=== PATIENT | female | born 1955 ===

== ENCOUNTER 2018-09-13 05:43 | Inpatient (IN) | payer OTHER ==
[~2018-09-13] VITALS: Ht 170.2 cm; Wt 62.4 kg
[2018-09-13] MEDS ORDERED: HYDROmorphONE 1 MG/ML SYG IV STA (06:06)
[2018-09-13] MEDS ORDERED: ONDANSETRON 4 MG INJ IV STA (06:06)
--- NOTE | 2018-09-13 06:26 | ERD ---
ER Documentation Chief Complaint Chief Complaint [facility] HPI This is a 63-year-old female who presents for evaluation of right upper quadrant abdominal pain. She denies fever, she was seen at [facility] today and was diagnosed with possible acute choledocholithiaisis. She denies fever, denies urinary symptoms, symptoms are sharp and intermittent, there are no alleviating or aggravating factors. She endorses nausea, denies chest pain. ROS All systems reviewed and are negative except as per history of present illness. Allergies Allergies: Coded Allergies: No Known Allergy (Unverified , 09/13/18) Physical Exam Vitals Vital Signs Date Temp Pulse Resp B/P (MAP) Pulse Ox O2 O2 Flow FiO2 Time Delivery Rate 09/13/18 98.5 79 20 141/82 98 05:53 (101) Physical Exam Const: No acute distress Head: Atraumatic Eyes: Normal Conjunctiva ENT: Normal External Ears, Nose and Mouth. Neck: Full range of motion. No meningismus. Resp: Clear to auscultation bilaterally Cardio: Regular rate and rhythm, no murmurs Abd: Soft, tenderness in the right upper quadrant, non distended. Normal bowel sounds Skin: No petechiae or rashes Back: No midline or flank tenderness Ext: No cyanosis, or edema Neur: Awake and alert Psych: Normal Mood and Affect Result Diagram: 09/13/18 0618 Results 24 hrs Laboratory Tests Test 09/13/18 06:18 White Blood Count 6.2 10^3/ul Red Blood Count 4.17 10^6/ul Hemoglobin 12.7 g/dl Hematocrit 37.0 % Mean Corpuscular Volume 88.7 fl Mean Corpuscular Hemoglobin 30.5 pg Mean Corpuscular Hemoglobin Concent 34.3 g/dl Red Cell Distribution Width 11.9 % Platelet Count 288 10^3/UL Mean Platelet Volume 9.7 fl Immature Granulocytes % 0.300 % Neutrophils % 58.4 % Lymphocytes % 26.5 % Monocytes % 10.6 % Eosinophils % 3.1 % Basophils % 1.1 % Nucleated Red Blood Cells % 0.0 /100WBC Immature Granulocytes # 0.020 10^3/ul Neutrophils # 3.6 10^3/ul Lymphocytes # 1.6 10^3/ul Monocytes # 0.7 10^3/ul Eosinophils # 0.2 10^3/ul Basophils # 0.1 10^3/ul Nucleated Red Blood Cells # 0.0 10^3/ul Urine Color YELLOW Urine Clarity CLEAR Urine pH 6.0 Urine Specific [place] 1.010 Urine Ketones 1+ mg/dL Urine Nitrite NEGATIVE mg/dL Urine Bilirubin NEGATIVE mg/dL Urine Urobilinogen NEGATIVE mg/dL Urine Leukocyte Esterase NEGATIVE Alejandro/ul Urine Microscopic RBC 2 /HPF Urine Microscopic WBC 1 /HPF Urine Mucus FEW /HPF Urine Hemoglobin 1+ mg/dL Urine Glucose NEGATIVE mg/dL Urine Total Protein NEGATIVE mg/dl Current Medications Medications Dose Sig/Cherelle Start Time Status Last (Trade) Ordered Route PRN Stop Time Admin Dose Reason Admin 1 mg ONCE STAT 09/13/18 DC 09/13/18 Hydromorphone IV 06:06 06:19 HCl 09/13/18 06:16 (Dilaudid) Ondansetron 4 mg ONCE STAT 09/13/18 DC 09/13/18 HCl (Zofran IV 06:06 06:19 Inj) 09/13/18 06:16 Procedures/MDM This 63-year-old female presents for evaluation of abdominal pain, seen at [facility] earlier today, presents today with persistent pain. It appears that she has failed outpatient management, of her cholelithiasis, and now there are signs concerning for acute choledocholithiasis. Her LFTs at the outside hospital were elevated with an AST of 290, and ALT of 212, and alk phos of 304, labs were otherwise unremarkable. Her ultrasound showed an 8 mm gallstone in the gallbladder neck, as well as common bile duct measured at 6 mm, findings which can concerning for acute choledocholithiasis. Patient was given analgesia in the ER, and will plan for admission. EKG: Rate/Rhythm: Normal Sinus Rhythm QRS, ST, T-waves: No changes consistent w/ acute ischemia Impression: No evidence of ischemia or arrhythmia Departure Diagnosis: Primary Impression: Abdominal pain Abdominal location: generalized Qualified Codes: R10.84 - Generalized abd ominal pain Additional Impressions: Cholelithiasis Cholelithiasis location: other site Biliary obstruction: without biliary obstruction Qualified Codes: K80.80 - Other cholelithiasis without obstruction Choledocholithiasis Condition: Stable KHARI GARCIA MD Sep 13, 2018 06:26
[2018-09-13] MEDS: PANTOPRAZOLE (EC) 40 MG TAB PO SCH (10:00)
[2018-09-13] MEDS ORDERED: HYDROCODONE/APAP (5/325) TAB PO PRN (10:00)
[2018-09-13] MEDS ORDERED: ACETAMINOPHEN 325 MG TAB PO PRN (10:00)
[2018-09-13] MEDS ORDERED: NACL 0.9% 3 ML SYG IV SCH (10:00)
[2018-09-13] MEDS ORDERED: morphine 2 MG INJ IV PRN (10:00)
[2018-09-13] MEDS ORDERED: ONDANSETRON 4 MG INJ IV PRN (10:00)
--- NOTE | 2018-09-13 10:07 | CONS ---
Assessment/Plan Assessment/Plan Hospital Course (Demo Recall) Assessment: Right upper quadrant abdominal pain/abnormal liver function test. Rule out acute cholecystitis Rule out choledocholithiasis Rule out peptic ulcer disease Rule out underlying liver disease Cholelithiasis Fibromyalgia TMJ Migraine headaches Plan: HIDA scan, MRCP, pending results consider ERCP if MRCP suspicious are confirmatory of choledocholithiasis. Surgical consult pending. Hepatocellular disease workup i.e. hepatitis viral and otherwise requested Consider EGD if biliary workup is negative We will follow with you Consultation Date/Type/Reason Admit Date/Time Sep 13, 2018 at 07:49 Date of Consultation: Sep 13, 2018 Type of Consult Gastroenterology Reason for Consultation Abdominal pain/abnormal liver function tests/cholelithiasis Date/Time of Note DATE: 09/13/18 TIME: 09:58 Hx of Present Illness 63-year-old female who is a poor historian she tends to get distracted and deviate from topic frequently. She also has according to her research and is very knowledgeable regarding medical issues. The patient was referred to the emergency room from [facility] where she had presented yesterday with abdominal pain, she apparently was found to have cholelithiasis on ultrasonography and also by CAT scan and apparently there was suggestion of a stone in the bile ducts. Unfortunately we have not been able to obtain the reports from [facility]. Patient has abnormality of liver function tests with hyperbilirubinemia which is indirect. The patient states that her pain has been recurrent for the last several months. She had been diagnosed cholelithiasis several months prior but she has been researching options to dissolve stones. At the present time the patient is pain-free as she received opiate pain management. She denies fever, nausea, vomiting. Of significance patient has been diagnosed fibromyalgia but is taking no medication for this purpose. She denies previous surgery. She denies smoking, alcohol or drug use. She admits to taking large quantities of Excedrin and other nonsteroidal inflammatory agents and is concerned about the possibility of peptic ulcer disease. There has been no overt gastrointestinal bleeding. At this point the patient will be evaluated with HIDA scan and MRCP as well as hepatocellular liver workup to rule out hepatitis viral and otherwise. Pending results of MRCP and HIDA scan and surgical evaluation the patient may benefit from ERCP if MRCP is consistent or suspicious for choledocholithiasis. She may also be considered for endoscopic examination given her history of nonsteroidal inflammatory agent use. Review of Systems: [A 12 system, review was conducted and is negative except as noted in the HPI or here.] Gastrointestinal and liver: [As noted in HPI] Past Medical History Cholelithiasis Fibromyalgia TMJ Migraine headaches Medications Current Medications Dextrose/Sodium Chloride 1,000 ml @ 100 mls/hr Q10H IV ; Start 09/13/18 at 09:45 IV Flush (NS 3 ml) 3 ml PER PROTOCOL IV ; Start 09/13/18 at 10:00 Ondansetron HCl (Zofran Inj) 4 mg Q6H PRN IV NAUSEA/VOMITING; Start 09/13/18 at 10:00 Acetaminophen (Tylenol Tab) 650 mg Q6H PRN PO .PAIN 1-3 OR TEMP; Start 09/13/18 at 10:00 Acetaminophen/ Hydrocodone Bitart ([place] (5/325)) 1 tab Q6H PRN PO .PAIN 4-6; Start 09/13/18 at 10:00 Morphine Sulfate (morphine) 2 mg Q4H PRN IV .PAIN 7-10; Start 09/13/18 at 10:00 Pantoprazole (Protonix Tab) 40 mg DAILY@06 PO ; Start 09/13/18 at 10:00 Allergies: Coded Allergies: No Known Allergy (Unverified , 09/13/18) Past Surgical History Inguinal hernia repaired Bunionectomy. Family History Significant Family History: no pertinent family hx Social History Alcohol Use: none Smoking Status: Never smoker Drug Use: none Exam/Review of Systems Exam Vitals Vital Signs Date Temp Pulse Resp B/P (MAP) Pulse Ox O2 O2 Flow FiO2 Time Delivery Rate 09/13/18 58 16 131/70 99 Room Air 08:19 (90) 09/13/18 98.5 05:53 Exam PHYSICAL EXAMINATION: GENERAL: Well developed, well nourished, alert & oriented x 3, in no acute distress SKIN: No lesions, no stigmata chronic liver disease, no evidence of bleeding diathesis LYMPHATIC: No palpable lymphadenopathy. HEAD: Normocephalic, atraumatic, no tenderness. EYES: Pupils equal reactive to light and accommodation, full extraocular movements, sclera clear, non-icteric, no discharge. EARS/NOSE AND THROAT: Ears normal, nose normal, oropharynx normal, oral membranes well hydrated without lesions. NECK: Supple, no masses, thyroid normal, JVP within normal limits, carotids normal without bruits. CHEST: Inspection within normal limits. CARDIOVASCULAR: Heart: Regular rate and rhythm, no murmurs, gallops or rubs. Peripheral pulses present within normal limits, no cyanosis, clubbing or edemas. No pulsatile abdominal mass RESPIRATORY: Lungs clear to auscultation and percussion, no wheezing, no rubs GASTROINTESTINAL AND LIVER: Abdomen: Soft, mild right upper quadrant tenderness, no Corrigan sign, non-distended, no hernias, no masses, no organomegaly, no ascites, no guarding, no rebound tenderness, normoactive bowel sounds. Rectal: Deferred. GENITOURINARY: [Female genitalia within normal limits.] EXTREMITIES: No cyanosis, clubbing or edema. [MUSCULO-SKELETAL: Gait and station within normal limits, range of motion adequate.] [NEUROLOGIC: Cranial nerves II-XII intact, Motor within normal limits, Sensory within normal limits. Reflexes within normal limits. PSYCHIATRIC: Alert & oriented x 3, mood/affect/judgement adequate] Results Result Diagram: 09/13/18 0618 09/13/18 0618 Results 24hrs Laboratory Tests Test 09/13/18 06:18 White Blood Count 6.2 Red Blood Count 4.17 L Hemoglobin 12.7 Hematocrit 37.0 Mean Corpuscular Volume 88.7 Mean Corpuscular Hemoglobin 30.5 Mean Corpuscular Hemoglobin Concent 34.3 Red Cell Distribution Width 11.9 Platelet Count 288 Mean Platelet Volume 9.7 Immature Granulocytes % 0.300 Neutrophils % 58.4 Lymphocytes % 26.5 Monocytes % 10.6 Eosinophils % 3.1 Basophils % 1.1 Nucleated Red Blood Cells % 0.0 Immature Granulocytes # 0.020 Neutrophils # 3.6 Lymphocytes # 1.6 Monocytes # 0.7 Eosinophils # 0.2 Basophils # 0.1 Nucleated Red Blood Cells # 0.0 Prothrombin Time 13.1 Prothrombin Time Ratio 1.0 INR International Normalized Ratio 0.98 Urine Color YELLOW Urine Clarity CLEAR Urine pH 6.0 Urine Specific [place] 1.010 Urine Ketones 1+ H Urine Nitrite NEGATIVE Urine Bilirubin NEGATIVE Urine Urobilinogen NEGATIVE Urine Leukocyte Esterase NEGATIVE Urine Microscopic RBC 2 Urine Microscopic WBC 1 Urine Mucus FEW A Urine Hemoglobin 1+ H Urine Glucose NEGATIVE Urine Total Protein NEGATIVE Sodium Level 142 Potassium Level 3.7 Chloride Level 103 Carbon Dioxide Level 28 Anion Gap 11 Blood Urea Nitrogen 12 Creatinine 0.87 Est Glomerular Filtrat Rate mL/min > 60 Glucose Level 123 Calcium Level 9.9 Total Bilirubin 1.2 Direct Bilirubin 0.00 Indirect Bilirubin 1.2 H Aspartate Amino Transf (AST/SGOT) 175 H Alanine Aminotransferase (ALT/SGPT) 186 H Alkaline Phosphatase 277 H Troponin I < 0.012 Total Protein 8.4 H Albumin 4.7 Globulin 3.70 H Albumin/Globulin Ratio 1.27 Lipase 84 Medications Medication Current Medications Dextrose/Sodium Chloride 1,000 ml @ 100 mls/hr Q10H IV ; Start 09/13/18 at 09:45 IV Flush (NS 3 ml) 3 ml PER PROTOCOL IV ; Start 09/13/18 at 10:00 Ondansetron HCl (Zofran Inj) 4 mg Q6H PRN IV NAUSEA/VOMITING; Start 09/13/18 at 10:00 Acetaminophen (Tylenol Tab) 650 mg Q6H PRN PO .PAIN 1-3 OR TEMP; Start 09/13/18 at 10:00 Acetaminophen/ Hydrocodone Bitart ([place] (5/325)) 1 tab Q6H PRN PO .PAIN 4-6; Start 09/13/18 at 10:00 Morphine Sulfate (morphine) 2 mg Q4H PRN IV .PAIN 7-10; Start 09/13/18 at 10:00 Pantoprazole (Protonix Tab) 40 mg DAILY@06 PO ; Start 09/13/18 at 10:00 VICKY MONTALVO MD Sep 13, 2018 10:07
[2018-09-13 10:15] VITALS: BP 149/65; PULSE 68; RESP 18
[2018-09-13] MEDS: DEXTROSE 5%-0.45% NACL 1,000 ML IV SCH ×2 (10:28→19:45)
[2018-09-13 11:00] VITALS: Ht 170.2 cm; Wt 62.4 kg
[2018-09-13] MEDS ORDERED: PIPER-TAZO 3.375 GM IV (PMX) 100 ML IVPB SCH (12:30)
--- NOTE | 2018-09-13 14:32 | HP ---
Date/Time of Note Date/Time of Note DATE: 09/13/18 TIME: 14:31 Assessment/Plan VTE Prophylaxis SCD contraindicated: other Pharmacological prophylaxis: other Lines/Catheters IV Catheter Type (from [facility]): Peripheral IV Assessment/Plan Hospital Course Patient is a female with a past medical history significant for fibromyalgia and intermittent abdominal pain who was told from her clinic to urgently come to the emergency room. Patient had been complaining of intermittent right upper quadrant and abdominal pain usually when she eats for the past couple of weeks or months. Currently patient has no abdominal pain but there has been abnormal liver function tests found on outpatient lab work. Patient denies chest pain, shortness of breath, leg pain, abdominal pain for now. Objective Physical exam Assessment and plan Intermittent right upper quadrant and abdominal pain -Elevated liver function test -Ultrasound showing gallbladder wall thickening -HIDA and MRCP ordered per GI -GI consulted -General surgery consulted, Dr. Dinero Fibromyalgia -Chronic, monitor History of TMJ Chronic monitor Disposition -Monitor, GI and general surgery recommendations, pending HIDA and MRCP results. Result Diagram: 09/13/18 0618 09/13/18 0618 Results 24hrs Laboratory Tests Test 09/13/18 06:18 09/13/18 10:18 09/13/18 10:19 White Blood Count 6.2 Red Blood Count 4.17 L Hemoglobin 12.7 Hematocrit 37.0 Mean Corpuscular Volume 88.7 Mean Corpuscular Hemoglobin 30.5 Mean Corpuscular Hemoglobin Concent 34.3 Red Cell Distribution Width 11.9 Platelet Count 288 Mean Platelet Volume 9.7 Immature Granulocytes % 0.300 Neutrophils % 58.4 Lymphocytes % 26.5 Monocytes % 10.6 Eosinophils % 3.1 Basophils % 1.1 Nucleated Red Blood Cells % 0.0 Immature Granulocytes # 0.020 Neutrophils # 3.6 Lymphocytes # 1.6 Monocytes # 0.7 Eosinophils # 0.2 Basophils # 0.1 Nucleated Red Blood Cells # 0.0 Prothrombin Time 13.1 Prothrombin Time Ratio 1.0 INR International Normalized Ratio 0.98 Urine Color YELLOW Urine Clarity CLEAR Urine pH 6.0 Urine Specific [place] 1.010 Urine Ketones 1+ H Urine Nitrite NEGATIVE Urine Bilirubin NEGATIVE Urine Urobilinogen NEGATIVE Urine Leukocyte Esterase NEGATIVE Urine Microscopic RBC 2 Urine Microscopic WBC 1 Urine Mucus FEW A Urine Hemoglobin 1+ H Urine Glucose NEGATIVE Urine Total Protein NEGATIVE Sodium Level 142 Potassium Level 3.7 Chloride Level 103 Carbon Dioxide Level 28 Anion Gap 11 Blood Urea Nitrogen 12 Creatinine 0.87 Est Glomerular Filtrat Rate mL/min > 60 Glucose Level 123 Calcium Level 9.9 Total Bilirubin 1.2 Direct Bilirubin 0.00 Indirect Bilirubin 1.2 H Aspartate Amino Transf (AST/SGOT) 175 H Alanine Aminotransferase (ALT/SGPT) 186 H Alkaline Phosphatase 277 H Troponin I < 0.012 Total Protein 8.4 H Albumin 4.7 Globulin 3.70 H Albumin/Globulin Ratio 1.27 Lipase 84 Iron Level 43 Total Iron Binding Capacity 268 Percent Iron Saturation 16 L Ferritin 76.2 Hepatitis B Surface Antigen NEGATIVE Hepatitis B Core Total Antibody NEGATIVE Hepatitis C Antibody NEGATIVE HPI/ROS Admit Date/Time Admit Date/Time Sep 13, 2018 at 07:49 PMH/Family/Social Past Medical History Medications Current Medications Dextrose/Sodium Chloride 1,000 ml @ 100 mls/hr Q10H IV Last administered on 09/13/18at 10:28; Admin Dose 100 MLS/HR; Start 09/13/18 at 09:45 IV Flush (NS 3 ml) 3 ml PER PROTOCOL IV ; Start 09/13/18 at 10:00 Ondansetron HCl (Zofran Inj) 4 mg Q6H PRN IV NAUSEA/VOMITING; Start 09/13/18 at 10:00 Acetaminophen (Tylenol Tab) 650 mg Q6H PRN PO .PAIN 1-3 OR TEMP; Start 09/13/18 at 10:00 Acetaminophen/ Hydrocodone Bitart ([place] (5/325)) 1 tab Q6H PRN PO .PAIN 4-6; Start 09/13/18 at 10:00 Morphine Sulfate (morphine) 2 mg Q4H PRN IV .PAIN 7-10; Start 09/13/18 at 10:00 Pantoprazole (Protonix Tab) 40 mg DAILY@06 PO ; Start 09/13/18 at 10:00 Piperacillin Sod/ Tazobactam Sod 100 ml @ 200 mls/hr Q6 IVPB ; Start 09/13/18 at 12:30 Coded Allergies: No Known Allergy (Unverified , 09/13/18) Family History Significant Family History: no pertinent family hx Social History Alcohol Use: none Smoking Status: Never smoker Drug Use: none Exam/Review of Systems Vital Signs Vitals Vital Signs Date Temp Pulse Resp B/P (MAP) Pulse Ox O2 O2 Flow FiO2 Time Delivery Rate 09/13/18 97.8 68 18 149/65 97 Room Air 10:15 (93) KHARI LEON Sep 13, 2018 14:32
[2018-09-13] MEDS: PIPER-TAZO 3.375 GM IV (PMX) 100 ML IVPB SCH ×2 (16:19→23:54)
[2018-09-13 20:26] VITALS: BP 138/64; PULSE 74; RESP 20
[2018-09-14] VITALS (14 sets, daily range): BP systolic 114–141; BP diastolic 53–82; PULSE 60–83; RESP 15–62
[2018-09-14] MEDS: DEXTROSE 5%-0.45% NACL 1,000 ML IV SCH ×2 (03:51→20:38)
[2018-09-14] MEDS: PANTOPRAZOLE (EC) 40 MG TAB PO SCH (05:15)
[2018-09-14] MEDS: PIPER-TAZO 3.375 GM IV (PMX) 100 ML IVPB SCH ×3 (05:19→20:38)
[2018-09-14] MEDS ORDERED: PANTOPRAZOLE 40 MG INJ IV SCH (06:00)
[2018-09-14] MEDS ORDERED: DEXAMETHASONE 4 MG/ML 5 ML INJ ONE (07:00)
[2018-09-14] MEDS ORDERED: CEFAZOLIN 1 GM INJ ONE (07:00)
[2018-09-14] MEDS ORDERED: INDOMETHACIN 50 MG SUPP PR ONE (08:00)
[2018-09-14] MEDS ORDERED: IOHEXOL 300MG/ML 30 ML BTL ONE (08:26)
[2018-09-14] MEDS ORDERED: LIDOCAINE 2% (SDV) 5 ML INJ ONE (10:06)
[2018-09-14] MEDS ORDERED: PROPOFOL 20 ML ONE (10:06)
[2018-09-14] MEDS ORDERED: SUCCINYLCHOLINE CHLORIDE 100 MG/5 ML SYG IV ONE (10:06)
[2018-09-14] MEDS ORDERED: MIDAZOLAM 1 MG/ML 2 ML INJ ONE (10:07)
[2018-09-14] MEDS ORDERED: FENTAnyl 50 MCG/ML VIAL ONE (10:07)
--- NOTE | 2018-09-14 10:58 | PREAC ---
Date/Time of Note Date/Time of Note DATE: 09/14/18 TIME: 10:57 Anesthesia Eval and Record Evaluation Time Pre-Procedure Interview DATE: 09/14/18 TIME: 10:57 Age 63 Sex female NPO: 8 hrs Preoperative diagnosis abd pain Planned procedure ERCP Past Medical History Past Medical History: Includes Neuro: Other (fibromyalgia) GI: GERD Psych: Anxiety Surgery & Anesthesia Issues No known issue Meds Anticoagulation: No Beta Cristine within 24 hr: No Reason Beta Cristine not given: Pt. not on B-Cristine Current Medications Dextrose/Sodium Chloride 1,000 ml @ 100 mls/hr Q10H IV Last administered on 09/14/18at 03:51; Admin Dose 100 MLS/HR; Start 09/13/18 at 09:45 IV Flush (NS 3 ml) 3 ml PER PROTOCOL IV ; Start 09/13/18 at 10:00 Ondansetron HCl (Zofran Inj) 4 mg Q6H PRN IV NAUSEA/VOMITING Last administered on 09/14/18at 07:05; Admin Dose 4 MG; Start 09/13/18 at 10:00 Acetaminophen (Tylenol Tab) 650 mg Q6H PRN PO .PAIN 1-3 OR TEMP; Start 09/13/18 at 10:00 Acetaminophen/ Hydrocodone Bitart ([place] (5/325)) 1 tab Q6H PRN PO .PAIN 4-6; Start 09/13/18 at 10:00 Morphine Sulfate (morphine) 2 mg Q4H PRN IV .PAIN 7-10; Start 09/13/18 at 10:00 Pantoprazole (Protonix Tab) 40 mg DAILY@06 PO ; Start 09/13/18 at 10:00 Piperacillin Sod/ Tazobactam Sod 100 ml @ 200 mls/hr Q6 IVPB Last administered on 09/14/18at 05:19; Admin Dose 200 MLS/HR; Start 09/13/18 at 16:00 Meds reviewed: Yes Allergies Coded Allergies: No Known Allergy (Unverified , 09/13/18) Allergies Reviewed: Yes Labs/Studies Labs Reviewed: Reviewed by anesthesiologist Result Diagram: 09/14/18 0425 09/14/18 0425 Laboratory Tests 09/14/18 04:25 test: Negative Studies: ECG, CXR Pre-procedure Exam Last vitals Vital Signs Date Temp Pulse Resp B/P (MAP) Pulse Ox O2 O2 Flow FiO2 Time Delivery Rate 09/14/18 97.9 83 18 131/74 98 07:19 (93) 09/14/18 Room Air 00:44 Airway: Adequate mouth opening, Adequate thyromental dist Mallampati: Mallampati III Teeth: Normal Lung: Normal Heart: Normal ASA Physical Status ASA physical status: 2 Emergency: E Planned Anesthetic General/MAC: ETT Planned Pain Management Parenteral pain med Pre-operative Attestations Prior to commencing anesthesia and surgery, the patient was re-evaluated, there was verification of: *The patient's identity *The results of appropriate recent lab work and preoperative vital signs *The above evaluation not changing prior to induction *Anesthetic plan, risk benefits, alternative and complications discussed with patient/family; questions answered; patient/family understands, accepts and wishes to proceed. NORM DYER MD Sep 14, 2018 10:58
[2018-09-14] MEDS ORDERED: MEPERIDINE 25 MG INJ IV PRN (11:00)
[2018-09-14] MEDS ORDERED: FENTAnyl 50 MCG/ML VIAL IV PRN ×2 (11:00)
[2018-09-14] MEDS ORDERED: LORAZEPAM 2 MG INJ IV PRN (11:00)
[2018-09-14] MEDS ORDERED: LEVALBUTEROL (NEB) 1.25 MG/0.5 ML AMP HHN PRN (11:00)
[2018-09-14] MEDS ORDERED: MIDAZOLAM 1 MG/ML 2 ML INJ IV PRN (11:00)
[2018-09-14] MEDS ORDERED: HALOPERIDOL 5 MG INJ IV PRN (11:00)
[2018-09-14] MEDS ORDERED: HYDROmorphONE 1 MG/5 ML IV SYRINGE IV PRN ×2 (11:00)
[2018-09-14] MEDS ORDERED: ONDANSETRON 4 MG INJ IV PRN (11:00)
[2018-09-14] MEDS ORDERED: IPRATROPIUM (NEB) 0.5 MG/2.5 ML AMP HHN PRN (11:00)
[2018-09-14] MEDS ORDERED: ONDANSETRON 4 MG INJ ONE (11:33)
[2018-09-14] MEDS ORDERED: METOCLOPRAMIDE 10 MG INJ ONE (11:36)
--- NOTE | 2018-09-14 11:42 | OPPN ---
Date/Time of Note Date/Time of Note DATE: 09/14/18 TIME: 11:38 Proc Note GI Procedure Date 09/14/18 Indication: diagnostic, treatment Pre-procedure Diagnosis Choledocholithiasis by MRCP Post-procedure Diagnosis Impression: Common bile duct sludge removed Post sphincterotomy Periampullary diverticulum Moderate gastritis. Rule out H. pylori infection. Biopsies obtained Plan: Continue present regimen. Continue PPI therapy Consider laparoscopic cholecystectomy in view of cholecystitis and high likeliho od of recurrence of choledocholithiasis the longer we wait Procedure Performed: ERCP (With sphincterotomy and stone/sludge removal plus gastric biopsies) Surgeon VICKY MONTALVO MD See signature line Relief Cook none Anesthesia Type: general Anesthesiologist: NORM DYER MD Tourniquet Time none EBL none Transfusion required none Biopsy 1: Gastric antrum Grafts/Implants none Tubes/Drains none Complication(s) none Disposition: PACU Procedure Description After informed consent, with the patient/relatives understanding the procedure, its indications, potential risks and complications, including but not limited to: allergic reaction, bleeding, perforation or infection, and after all pertinent questions were answered to the patients satisfaction, the patient/relatives signed witnessed informed consent. Following this, premedication was administered slowly IV push under careful cardiovascular and respiratory monitoring with pulse oximetry, automatic blood pressure, and night monitor. Once the sedative effect was achieved the patient was place in the prone position in the radiology special procedures suite; the side viewing panendoscope was introduced and advanced under visual control. Careful examination of the upper gastrointestinal tract, both on insertion as well as withdrawal of the instrument disclosed the following findings: Esophagus: The mucosa of the entire appears within normal limits. There is no evidence of esophagitis, varices, neoplasm or stricture. No Hiatal Hernia identified. Stomach: Upon entrance to the stomach air was insufflated, the gastric doherty distended normally, the mucosa of the fundus, body and antrum of the stomach was carefully examined both head-on and on retroflexion, and shows moderate erythema and edema of the mucosa of the antrum. Biopsies were obtained to rule out H. pylori infection. Otherwise there are no additional abnormalities. There is no evidence of ulcers, or neoplasm. Pylorus: The pylorus appears patent and within normal limits, with no evidence of gastric outlet obstruction. Duodenum: There is a periampullary diverticulum measuring at least 3 cm in the second portion of the duodenum. The ampulla is not involved. Otherwise the duodenal mucosa was carefully examined in the duodenal bulb as well as the second portion of the duodenum and appears unremarkable with no evidence of duodenitis, ulcer or neoplasm. Ampulla of vater: The ampulla of Vater was identified and carefully examined appearing within normal limits. Cannulation: At this point cannulation was accomplished with the following fluoroscopic findings: Pancreatogram: Not obtained Cholangiogram: There is mild dilatation of the biliary tree with an estimated maximum diameter of 10 mm. Questionable amorphous filling defect is noted in the distal common bile duct. A small sphincterotomy was performed as the ampulla is extremely small. A 9-12 mm balloon was utilized to sweep the biliary tree and some sludge was extracted no stones are present. Balloon cholangiogram was then obtained showed no abnormalities and rapid emptying. The instrument was then withdrawn the patient tolerated the procedure well and was transfer out of the endoscopy suite awake, and in good condition to continue to recover under observation. Copies To: CC: VICKY MONTALVO MD ; VICKY MONTALVO MD Sep 14, 2018 11:42
--- NOTE | 2018-09-14 12:47 | PN ---
Date/Time of Note Date/Time of Note DATE: 09/14/18 TIME: 12:44 Objective Vitals Vital Signs Date Temp Pulse Resp B/P (MAP) Pulse Ox O2 O2 Flow FiO2 Time Delivery Rate 09/14/18 62 32 119/53 97 Room Air 12:29 (75) 09/14/18 97.5 12:09 09/14/18 10.0 11:54 Intake and Output 09/13/18 09/13/18 09/14/18 1414:59 22:59 06:59 IntakeIntake Total 1600 ml BalanceBalance 1600 ml Results Result Diagram: 09/14/18 0425 09/14/18 0425 Medications Medications Current Medications Dextrose/Sodium Chloride 1,000 ml @ 100 mls/hr Q10H IV Last administered on 09/14/18at 03:51; Admin Dose 100 MLS/HR; Start 09/13/18 at 09:45 IV Flush (NS 3 ml) 3 ml PER PROTOCOL IV ; Start 09/13/18 at 10:00 Ondansetron HCl (Zofran Inj) 4 mg Q6H PRN IV NAUSEA/VOMITING Last administered on 09/14/18at 07:05; Admin Dose 4 MG; Start 09/13/18 at 10:00 Acetaminophen (Tylenol Tab) 650 mg Q6H PRN PO .PAIN 1-3 OR TEMP; Start 09/13/18 at 10:00 Acetaminophen/ Hydrocodone Bitart ([place] (5/325)) 1 tab Q6H PRN PO .PAIN 4-6; Start 09/13/18 at 10:00 Morphine Sulfate (morphine) 2 mg Q4H PRN IV .PAIN 7-10; Start 09/13/18 at 10:00 Pantoprazole (Protonix Tab) 40 mg DAILY@06 PO ; Start 09/13/18 at 10:00 Piperacillin Sod/ Tazobactam Sod 100 ml @ 200 mls/hr Q6 IVPB Last administered on 09/14/18at 05:19; Admin Dose 200 MLS/HR; Start 09/13/18 at 16:00 VTE Prophylaxis Risk score (from Nsg)>0 risk: 3 SCD applied (from Nsg): Yes Lines/Catheters IV Catheter Type: Sandoval in Place: No Assessment/Plan Hospital Course Subjective patient had many questions regarding upcoming ERCP, questions addressed Objective Physical exam Assessment and plan Intermittent right upper quadrant and abdominal pain -Secondary to choledocholithiasis and cholecystitis seen on HIDA and MRCP -GI consulted -General surgery consulted, Dr. Dinero Choledocholithiasis -ERCP pending today Cholecystitis -General surgeon consulted -Continue IV antibiotic Fibromyalgia -Chronic, monitor Acute on chronic substernal and left rib musculoskeletal pain -Possibly related to patient's fibromyalgia,, painful with palpation, painful with inhalation, painful with movement, very likely musculoskeletal, possible costochondritis, will monitor for now and possibly starts NSAIDs in the future after discharge versus lidocaine patch History of TMJ Chronic monitor Disposition -ERCP today, pending surgical eval for cholecystitis. KHARI LEON Sep 14, 2018 12:47
[2018-09-14] MEDS ORDERED: LIDOCAINE 5% PATCH TD PRN (14:00)
--- NOTE | 2018-09-14 20:46 | PAC ---
Date/Time of Note Date/Time of Note DATE: 09/14/18 TIME: 20:46 Post-Anesthesia Notes Post-Anesthesia Note Last documented vital signs Vital Signs Date Temp Pulse Resp B/P (MAP) Pulse Ox O2 O2 Flow FiO2 Time Delivery Rate 09/14/18 98.1 62 16 141/63 95 Room Air 19:51 (89) 09/14/18 10.0 11:54 Activity: WNL Respiratory function: WNL Cardiovascular function: WNL Mental status: Baseline Pain reasonably controlled: Yes Hydration appropriate: Yes Nausea/Vomiting absent: Yes NORM DYER MD Sep 14, 2018 20:46
[2018-09-15] VITALS (25 sets, daily range): BP systolic 115–147; BP diastolic 56–91; PULSE 52–72; RESP 13–23
[2018-09-15] MEDS: PIPER-TAZO 3.375 GM IV (PMX) 100 ML IVPB SCH ×4 (01:07→20:51)
[2018-09-15] MEDS: DEXTROSE 5%-0.45% NACL 1,000 ML IV SCH ×2 (01:45→13:04)
[2018-09-15] MEDS: PANTOPRAZOLE (EC) 40 MG TAB PO SCH (06:00)
--- NOTE | 2018-09-15 11:38 | PN ---
Date/Time of Note Date/Time of Note DATE: 09/15/18 TIME: 11:33 Assessment/Plan VTE Prophylaxis Risk score (from Ns)>0 risk: 3 SCD applied (from Ns): Yes Pharmacological prophylaxis: NA/contraindicated Pharm contraindication: surgical contra Lines/Catheters IV Catheter Type (from Nrsg): Urinary Cath still in place: No Assessment/Plan Assessment/Plan 1. Acute choledocholithiasis - s/p ERCP and appreciate GI consultation. Findings discussed with patient - choledocholithiasis and cholecystitis seen on HIDA and MRCP - Surgery on board and plans for lap kelsea this afternoon. Discuss typical post op course with patient - pain control 2. Acute cholecystitis - Surgery scheduled for today - Continue IV antibiotic 3. Fibromyalgia - Chronic, monitor 4. Chronic headaches - discussed limiting Excedrin given findings of gastritis 5. History of TMJ - Chronic monitor 6. Disposition - Plans for lap kelsea today Result Diagram: 09/15/18 0442 09/15/18 0442 Results 24hrs Laboratory Tests Test 09/15/18 04:42 White Blood Count 6.3 # Red Blood Count 3.45 L Hemoglobin 10.3 L Hematocrit 29.9 L Mean Corpuscular Volume 86.7 Mean Corpuscular Hemoglobin 29.9 Mean Corpuscular Hemoglobin Concent 34.4 Red Cell Distribution Width 11.9 Platelet Count 209 Mean Platelet Volume 9.8 Immature Granulocytes % 0.300 Neutrophils % 65.3 Lymphocytes % 21.8 Monocytes % 11.4 H Eosinophils % 0.6 Basophils % 0.6 Nucleated Red Blood Cells % 0.0 Immature Granulocytes # 0.020 Neutrophils # 4.1 Lymphocytes # 1.4 Monocytes # 0.7 Eosinophils # 0.0 Basophils # 0.0 Nucleated Red Blood Cells # 0.0 Sodium Level 143 Potassium Level 4.2 Chloride Level 106 Carbon Dioxide Level 27 Anion Gap 10 Blood Urea Nitrogen 9 Creatinine 0.89 Est Glomerular Filtrat Rate mL/min > 60 Glucose Level 157 Calcium Level 9.2 Phosphorus Level 4.0 Magnesium Level 1.9 Subjective 24 Hr Interval Summary Free Text/Dictation Patient is complaining of headache and states only Excedrin works. Discussed findings of gastritis and need to d/c Excedrin. Patient asking questions regarding GI findings and surgery postop course. All questions addressed. No acute overnight events. Exam/Review of Systems Exam Vitals Vital Signs Date Temp Pulse Resp B/P (MAP) Pulse Ox O2 O2 Flow FiO2 Time Delivery Rate 09/15/18 98.4 63 18 125/60 98 Room Air 07:46 (81) 09/14/18 10.0 11:54 Intake and Output 09/14/18 09/14/18 09/15/18 1515:00 23:00 07:00 IntakeIntake Total 500 ml 100 ml 1500 ml BalanceBalance 500 ml 100 ml 1500 ml Exam General: Patient is laying in bed and answers questions appropriately Neck: Supple, nontender, midline Respiratory: Clear to auscultation bilaterally. no wheezing or rhonchi Cardiovascular: regular rate and rhythm, no obvious murmurs Gastrointestinal: soft, mildly tender RUQ, nondistended, bowel sounds heard. Neurological: Moves all extremities spontaneously but Skin: No new skin lesions Results Results 24hrs Laboratory Tests Test 09/15/18 04:42 White Blood Count 6.3 # Red Blood Count 3.45 L Hemoglobin 10.3 L Hematocrit 29.9 L Mean Corpuscular Volume 86.7 Mean Corpuscular Hemoglobin 29.9 Mean Corpuscular Hemoglobin Concent 34.4 Red Cell Distribution Width 11.9 Platelet Count 209 Mean Platelet Volume 9.8 Immature Granulocytes % 0.300 Neutrophils % 65.3 Lymphocytes % 21.8 Monocytes % 11.4 H Eosinophils % 0.6 Basophils % 0.6 Nucleated Red Blood Cells % 0.0 Immature Granulocytes # 0.020 Neutrophils # 4.1 Lymphocytes # 1.4 Monocytes # 0.7 Eosinophils # 0.0 Basophils # 0.0 Nucleated Red Blood Cells # 0.0 Sodium Level 143 Potassium Level 4.2 Chloride Level 106 Carbon Dioxide Level 27 Anion Gap 10 Blood Urea Nitrogen 9 Creatinine 0.89 Est Glomerular Filtrat Rate mL/min > 60 Glucose Level 157 Calcium Level 9.2 Phosphorus Level 4.0 Magnesium Level 1.9 Medications Medication Current Medications Dextrose/Sodium Chloride 1,000 ml @ 100 mls/hr Q10H IV Last administered on 09/14/18at 20:38; Admin Dose 100 MLS/HR; Start 09/13/18 at 09:45 IV Flush (NS 3 ml) 3 ml PER PROTOCOL IV ; Start 09/13/18 at 10:00 Ondansetron HCl (Zofran Inj) 4 mg Q6H PRN IV NAUSEA/VOMITING Last administered on 09/14/18at 07:05; Admin Dose 4 MG; Start 09/13/18 at 10:00 Acetaminophen (Tylenol Tab) 650 mg Q6H PRN PO .PAIN 1-3 OR TEMP; Start 09/13/18 at 10:00 Acetaminophen/ Hydrocodone Bitart ([place] (5/325)) 1 tab Q6H PRN PO .PAIN 4-6; Start 09/13/18 at 10:00 Morphine Sulfate (morphine) 2 mg Q4H PRN IV .PAIN 7-10; Start 09/13/18 at 10:00 Pantoprazole (Protonix Tab) 40 mg DAILY@06 PO ; Start 09/13/18 at 10:00 Piperacillin Sod/ Tazobactam Sod 100 ml @ 200 mls/hr Q6 IVPB Last administered on 09/15/18at 06:14; Admin Dose 200 MLS/HR; Start 09/13/18 at 16:00 Lidocaine (Lidoderm) 1 patch DAILY PRN TD chest wall/rib pain; Start 09/14/18 at 14:00 RICK FREY MD Sep 15, 2018 11:38
--- NOTE | 2018-09-15 13:17 | PN ---
Date/Time of Note Date/Time of Note DATE: 09/15/18 TIME: 13:13 Assessment/Plan VTE Prophylaxis Risk score (from Ns)>0 risk: 3 SCD applied (from Ns): Yes Pharmacological prophylaxis: other (scds) Lines/Catheters IV [facility]from [facility] Peripheral IV Urinary Cath still in place: No Assessment/Plan Hospital Course Assessment: Right upper quadrant abdominal pain/abnormal liver function test. Rule out acute cholecystitis Rule out choledocholithiasis Rule out peptic ulcer disease Rule out underlying liver disease ERCP 09/14/18 Impression: Common bile duct sludge removed Post sphincterotomy Periampullary diverticulum Moderate gastritis. Rule out H. pylori infection. Biopsies obtained Cholelithiasis Fibromyalgia TMJ Migraine headaches Plan: Continue present regimen. Continue PPI therapy x4 weeks Plan for cholecystectomy today Patient seen in collaboration with Dr. Alarcon/Clarice Subjective: Course reviewed with nursing staff Patient interviewed and examined All labs, imaging and other results reviewed The patient resting in bed, in no acute distress Pt with multiple questions, all answered. Discussed results of ERCP, pt verbalized understanding PHYSICAL EXAMINATION: GENERAL: Well developed, well nourished, alert & oriented x 3, in no acute distress SKIN: No lesions HEAD: Normocephalic, atraumatic, no tenderness. EYES: Pupils equal reactive to light, no discharge. EARS/NOSE AND THROAT: Ears normal, nose normal, oropharynx normal, oral membranes well hydrated without lesions. NECK: Supple, no masses CHEST: Inspection within normal limits. CARDIOVASCULAR: Heart: Regular rate and rhythm RESPIRATORY: Lungs clear to auscultation GASTROINTESTINAL AND LIVER: Abdomen: Soft, mild right upper quadrant tenderness, no Corrigan sign, non-distended, no hernias, no masses, no organomegaly, no ascites, no guarding, no rebound tenderness, normoactive bowel sounds. Rectal: Deferred. Result Diagram: 09/15/18 0442 09/15/18 0442 Results 24hrs Laboratory Tests Test 09/15/18 04:42 White Blood Count 6.3 # Red Blood Count 3.45 L Hemoglobin 10.3 L Hematocrit 29.9 L Mean Corpuscular Volume 86.7 Mean Corpuscular Hemoglobin 29.9 Mean Corpuscular Hemoglobin Concent 34.4 Red Cell Distribution Width 11.9 Platelet Count 209 Mean Platelet Volume 9.8 Immature Granulocytes % 0.300 Neutrophils % 65.3 Lymphocytes % 21.8 Monocytes % 11.4 H Eosinophils % 0.6 Basophils % 0.6 Nucleated Red Blood Cells % 0.0 Immature Granulocytes # 0.020 Neutrophils # 4.1 Lymphocytes # 1.4 Monocytes # 0.7 Eosinophils # 0.0 Basophils # 0.0 Nucleated Red Blood Cells # 0.0 Sodium Level 143 Potassium Level 4.2 Chloride Level 106 Carbon Dioxide Level 27 Anion Gap 10 Blood Urea Nitrogen 9 Creatinine 0.89 Est Glomerular Filtrat Rate mL/min > 60 Glucose Level 157 Calcium Level 9.2 Phosphorus Level 4.0 Magnesium Level 1.9 Exam/Review of Systems Exam Vitals Vital Signs Date Temp Pulse Resp B/P (MAP) Pulse Ox O2 O2 Flow FiO2 Time Delivery Rate 09/15/18 98.4 63 18 125/60 98 Room Air 07:46 (81) 09/14/18 10.0 11:54 Intake and Output 09/14/18 09/14/18 09/15/18 1515:00 23:00 07:00 IntakeIntake Total 500 ml 100 ml 1500 ml BalanceBalance 500 ml 100 ml 1500 ml Results Results 24hrs Laboratory Tests Test 09/15/18 04:42 White Blood Count 6.3 # Red Blood Count 3.45 L Hemoglobin 10.3 L Hematocrit 29.9 L Mean Corpuscular Volume 86.7 Mean Corpuscular Hemoglobin 29.9 Mean Corpuscular Hemoglobin Concent 34.4 Red Cell Distribution Width 11.9 Platelet Count 209 Mean Platelet Volume 9.8 Immature Granulocytes % 0.300 Neutrophils % 65.3 Lymphocytes % 21.8 Monocytes % 11.4 H Eosinophils % 0.6 Basophils % 0.6 Nucleated Red Blood Cells % 0.0 Immature Granulocytes # 0.020 Neutrophils # 4.1 Lymphocytes # 1.4 Monocytes # 0.7 Eosinophils # 0.0 Basophils # 0.0 Nucleated Red Blood Cells # 0.0 Sodium Level 143 Potassium Level 4.2 Chloride Level 106 Carbon Dioxide Level 27 Anion Gap 10 Blood Urea Nitrogen 9 Creatinine 0.89 Est Glomerular Filtrat Rate mL/min > 60 Glucose Level 157 Calcium Level 9.2 Phosphorus Level 4.0 Magnesium Level 1.9 Medications Medication Current Medications Dextrose/Sodium Chloride 1,000 ml @ 100 mls/hr Q10H IV Last administered on 09/15/18at 13:04; Admin Dose 100 MLS/HR; Start 09/13/18 at 09:45 IV Flush (NS 3 ml) 3 ml PER PROTOCOL IV ; Start 09/13/18 at 10:00 Ondansetron HCl (Zofran Inj) 4 mg Q6H PRN IV NAUSEA/VOMITING Last administered on 09/14/18at 07:05; Admin Dose 4 MG; Start 09/13/18 at 10:00 Acetaminophen (Tylenol Tab) 650 mg Q6H PRN PO .PAIN 1-3 OR TEMP; Start 09/13/18 at 10:00 Acetaminophen/ Hydrocodone Bitart ([place] (5/325)) 1 tab Q6H PRN PO .PAIN 4-6; Start 09/13/18 at 10:00 Morphine Sulfate (morphine) 2 mg Q4H PRN IV .PAIN 7-10; Start 09/13/18 at 10:00 Pantoprazole (Protonix Tab) 40 mg DAILY@06 PO ; Start 09/13/18 at 10:00 Piperacillin Sod/ Tazobactam Sod 100 ml @ 200 mls/hr Q6 IVPB Last administered on 09/15/18at 12:30; Admin Dose 200 MLS/HR; Start 09/13/18 at 16:00 Lidocaine (Lidoderm) 1 patch DAILY PRN TD chest wall/rib pain; Start 09/14/18 at 14:00 SHAYY HENDRICKSON Sep 15, 2018 13:17
[2018-09-15] MEDS ORDERED: ROCURONIUM 50 MG INJ ONE (16:10)
[2018-09-15] MEDS ORDERED: PROPOFOL 20 ML ONE (16:10)
[2018-09-15] MEDS ORDERED: ROPIVACAINE 0.5 % 30 ML VIAL ONE ×2 (16:11→16:15)
[2018-09-15] MEDS ORDERED: MIDAZOLAM 1 MG/ML 2 ML INJ ONE (16:11)
[2018-09-15] MEDS ORDERED: FENTAnyl 50 MCG/ML VIAL ONE (16:11)
[2018-09-15] MEDS ORDERED: BUPIVACAINE 0.25% (MPF) 30 ML INJ ONE (16:27)
[2018-09-15] MEDS ORDERED: LIDOCAINE 1%/EPI (1:100,000) (MDV) 20 ML ONE (16:27)
--- NOTE | 2018-09-15 16:37 | PREAC ---
Date/Time of Note Date/Time of Note DATE: 09/15/18 TIME: 16:35 Anesthesia Eval and Record Evaluation Time Pre-Procedure Interview DATE: 09/15/18 TIME: 16:35 Age 63 Sex female NPO: 8 hrs Preoperative diagnosis Cholelithiasis Planned procedure Laparoscopic Cholecystectomy Past Medical History Past Medical History: Includes Endo: Other (Fibromyalgia) Heme: Anemia Surgery & Anesthesia Issues No known issue Meds Anticoagulation: No Beta Cristine within 24 hr: No Reason Beta Cristine not given: Pt. not on B-Cristine Current Medications Dextrose/Sodium Chloride 1,000 ml @ 100 mls/hr Q10H IV Last administered on 09/15/18at 13:04; Admin Dose 100 MLS/HR; Start 09/13/18 at 09:45 IV Flush (NS 3 ml) 3 ml PER PROTOCOL IV ; Start 09/13/18 at 10:00 Ondansetron HCl (Zofran Inj) 4 mg Q6H PRN IV NAUSEA/VOMITING Last administered on 09/14/18at 07:05; Admin Dose 4 MG; Start 09/13/18 at 10:00 Acetaminophen (Tylenol Tab) 650 mg Q6H PRN PO .PAIN 1-3 OR TEMP; Start 09/13/18 at 10:00 Acetaminophen/ Hydrocodone Bitart ([place] (5/325)) 1 tab Q6H PRN PO .PAIN 4-6; Start 09/13/18 at 10:00 Morphine Sulfate (morphine) 2 mg Q4H PRN IV .PAIN 7-10; Start 09/13/18 at 10:00 Pantoprazole (Protonix Tab) 40 mg DAILY@06 PO ; Start 09/13/18 at 10:00 Piperacillin Sod/ Tazobactam Sod 100 ml @ 200 mls/hr Q6 IVPB Last administered on 09/15/18at 12:30; Admin Dose 200 MLS/HR; Start 09/13/18 at 16:00 Lidocaine (Lidoderm) 1 patch DAILY PRN TD chest wall/rib pain; Start 09/14/18 at 14:00 Meds reviewed: Yes Allergies Coded Allergies: No Known Allergy (Unverified , 09/13/18) Allergies Reviewed: Yes Labs/Studies Labs Reviewed: Reviewed by anesthesiologist Result Diagram: 09/15/18 0442 09/15/18 0442 Laboratory Tests 09/15/18 04:42 test: N/A Studies: ECG (n/a), CXR (n/a) Pre-procedure Exam Last vitals Vital Signs Date Temp Pulse Resp B/P (MAP) Pulse Ox O2 O2 Flow FiO2 Time Delivery Rate 09/15/18 98.4 63 18 125/60 98 Room Air 07:46 (81) 09/14/18 10.0 11:54 Airway: Adequate mouth opening, Adequate thyromental dist Mallampati: Mallampati II Teeth: Normal Lung: Normal Heart: Normal ASA Physical Status ASA physical status: 2 Emergency: None Planned Anesthetic General/MAC: ETT Nerve block: TAP (bilateral) Planned Pain Management Single shot nerve block, Parenteral pain med Pre-operative Attestations Prior to commencing anesthesia and surgery, the patient was re-evaluated, there was verification of: *The patient's identity *The results of appropriate recent lab work and preoperative vital signs *The above evaluation not changing prior to induction *Anesthetic plan, risk benefits, alternative and complications discussed with patient/family; questions answered; patient/family understands, accepts and wishes to proceed. VENUS JEAN MD Sep 15, 2018 16:37
[2018-09-15] MEDS ORDERED: METOCLOPRAMIDE 10 MG INJ IV PRN (17:00)
[2018-09-15] MEDS ORDERED: MEPERIDINE 25 MG INJ IV PRN (17:00)
[2018-09-15] MEDS ORDERED: OXYCODONE/ACETAMINOPHEN (5/325) TAB PO PRN (17:00)
[2018-09-15] MEDS ORDERED: ONDANSETRON 4 MG INJ IV PRN ×2 (17:00→18:30)
[2018-09-15] MEDS ORDERED: hydrALAzine 20 MG INJ IV PRN (17:00)
[2018-09-15] MEDS ORDERED: DIPHENHYDRAMINE 50 MG INJ IV PRN (17:00)
[2018-09-15] MEDS ORDERED: LABETALOL HCL 20MG INJ IV PRN (17:00)
[2018-09-15] MEDS ORDERED: FENTAnyl 50 MCG/ML VIAL IV PRN ×2 (17:00)
[2018-09-15] MEDS ORDERED: EPHEDrine SULFATE 50 MG/5 ML SYG IV PRN (17:00)
[2018-09-15] MEDS ORDERED: HYDROmorphONE 1 MG/5 ML IV SYRINGE IV PRN ×3 (17:00)
--- NOTE | 2018-09-15 17:02 | CONS ---
Assessment/Plan Assessment/Plan Assessment/Plan (Daily) Cholelithiasis, choledocholithiasis, status post successful ERCP with clearance of common bile duct. Plan recommendation after thorough discussion with the patient and answering all of her questions regarding natural history of bladder disease, choledocholithiasis and risk of ongoing passage of common duct stones and possible gallstone pancreatitis, obstructive jaundice, cholangitis were all revi ewed her . Recommendation is for laparoscopic cholecystectomy details of the procedure risk benefits alternatives were discussed including possibility of need for commercial procedure possibility of postoperative bile leak possibility of an abdominal abscess possibility of ongoing risks of common duct stone in the future. All questions were answered patient is agreeable to proceed and or has been contacted and we will proceed as or time is available. Consultation Date/Type/Reason Admit Date/Time Sep 13, 2018 at 07:49 Date of Consultation: Sep 14, 2018 Type of Consult General surgery consult Reason for Consultation Cholelithiasis choledocholithiasis possible cholecystitis Requesting Provider: KHARI LEON Date/Time of Note DATE: 09/15/18 TIME: 16:56 Hx of Present Illness Patient 63-year-old female who presented to [facility] with severe epigastric and right upper quadrant pain and back pain. She was noted to have gallstones and also suggestive of choledocholithiasis with elevated LFTs and on MRI consistent with a dilated common duct and stones in the distal common duct. She underwent ERCP successfully where sphincterotomy was performed the common bile duct was swept clean and now recommended to undergo laparoscopic cholecystectomy to minimize ongoing risks of passing of stones, cholecystitis, or common duct obstruction Past Medical History Medications Current Medications Dextrose/Sodium Chloride 1,000 ml @ 100 mls/hr Q10H IV Last administered on 09/15/18at 13:04; Admin Dose 100 MLS/HR; Start 09/13/18 at 09:45 IV Flush (NS 3 ml) 3 ml PER PROTOCOL IV ; Start 09/13/18 at 10:00 Ondansetron HCl (Zofran Inj) 4 mg Q6H PRN IV NAUSEA/VOMITING Last administered on 09/14/18at 07:05; Admin Dose 4 MG; Start 09/13/18 at 10:00 Acetaminophen (Tylenol Tab) 650 mg Q6H PRN PO .PAIN 1-3 OR TEMP; Start 09/13/18 at 10:00 Acetaminophen/ Hydrocodone Bitart ([place] (5/325)) 1 tab Q6H PRN PO .PAIN 4-6; Start 09/13/18 at 10:00 Morphine Sulfate (morphine) 2 mg Q4H PRN IV .PAIN 7-10; Start 09/13/18 at 10:00 Pantoprazole (Protonix Tab) 40 mg DAILY@06 PO ; Start 09/13/18 at 10:00 Piperacillin Sod/ Tazobactam Sod 100 ml @ 200 mls/hr Q6 IVPB Last administered on 09/15/18at 12:30; Admin Dose 200 MLS/HR; Start 09/13/18 at 16:00 Lidocaine (Lidoderm) 1 patch DAILY PRN TD chest wall/rib pain; Start 09/14/18 at 14:00 Hydromorphone HCl (Dilaudid) 0.2 mg PACU PRN IV MILD PAIN 1-3; Start 09/15/18 at 17:00; Status UNV Hydromorphone HCl (Dilaudid) 0.4 mg PACU PRN IV MOD PAIN 4-6; Start 09/15/18 at 17:00; Status UNV Hydromorphone HCl (Dilaudid) 0.6 mg PACU PRN IV SEVERE PAIN 7-10; Start 09/15/18 at 17:00; Status UNV Fentanyl (Sublimaze) 25 mcg PACU ORDER PRN IV MILD PAIN 1-3; Start 09/15/18 at 17:00; Status UNV Fentanyl (Sublimaze) 50 mcg PACU ORDER PRN IV MOD PAIN 4-6; Start 09/15/18 at 17:00; Status UNV Fentanyl (Sublimaze) 75 mcg PACU ORDER PRN IV SEVERE PAIN 7-10; Start 09/15/18 at 17:00; Status UNV Oxycodone/ Acetaminophen (P[place]et (5/ 325)) 1 tab PACU ORDER PRN PO .PAIN 1-5; Start 09/15/18 at 17:00; Status UNV Ondansetron HCl (Zofran Inj) 4 mg PACU ORDER PRN IV NAUSEA/VOMITING; Start 09/15/18 at 17:00; Status UNV Metoclopramide HCl (Reglan) 10 mg PACU ORDER PRN IV NAUSEA/VOMITING; Start 09/15/18 at 17:00; Status UNV Labetalol HCl (Labetalol) 5 mg PACU ORDER PRN IV HIGH BLOOD PRESSURE; Start 09/15/18 at 17:00; Status UNV Hydralazine HCl (Apresoline) 5 mg PACU ORDER PRN IV HIGH BLOOD PRESSURE; Start 09/15/18 at 17:00; Status UNV Ephedrine Sulfate 5 mg PACU ORDER PRN IV BLOOD PRESSURE SUPPORT; Start 09/15/18 at 17:00; Status UNV Meperidine HCl (Demerol) 25 mg PACU ORDER PRN IV .RIGORS; Start 09/15/18 at 17:00; Status UNV Diphenhydramine HCl (Benadryl) 25 mg PACU ORDER PRN IV .PRURITUS; Start 09/15/18 at 17:00; Status UNV Allergies: Coded Allergies: No Known Allergy (Unverified , 09/13/18) Social History Alcohol Use: none Smoking Status: Never smoker Drug Use: none Exam/Review of Systems Exam Vitals Vital Signs Date Temp Pulse Resp B/P (MAP) Pulse Ox O2 O2 Flow FiO2 Time Delivery Rate 09/15/18 98.4 63 18 125/60 98 Room Air 07:46 (81) 09/14/18 10.0 11:54 Intake and Output 09/14/18 09/14/18 09/15/18 1515:00 23:00 07:00 IntakeIntake Total 500 ml 100 ml 1500 ml BalanceBalance 500 ml 100 ml 1500 ml Exam aLERT &Oriented x3. HEENT pupils equal and reactive to light sclerae anicteriC Lungs clear to auscultation. Cor regular rate and rhythm normal S1-S2 Abdomen soft nondistended mild tenderness right upper quadrant to deep palpation Results Result Diagram: 09/15/18 0442 09/15/18 0442 Results 24hrs Laboratory Tests Test 09/15/18 04:42 White Blood Count 6.3 # Red Blood Count 3.45 L Hemoglobin 10.3 L Hematocrit 29.9 L Mean Corpuscular Volume 86.7 Mean Corpuscular Hemoglobin 29.9 Mean Corpuscular Hemoglobin Concent 34.4 Red Cell Distribution Width 11.9 Platelet Count 209 Mean Platelet Volume 9.8 Immature Granulocytes % 0.300 Neutrophils % 65.3 Lymphocytes % 21.8 Monocytes % 11.4 H Eosinophils % 0.6 Basophils % 0.6 Nucleated Red Blood Cells % 0.0 Immature Granulocytes # 0.020 Neutrophils # 4.1 Lymphocytes # 1.4 Monocytes # 0.7 Eosinophils # 0.0 Basophils # 0.0 Nucleated Red Blood Cells # 0.0 Sodium Level 143 Potassium Level 4.2 Chloride Level 106 Carbon Dioxide Level 27 Anion Gap 10 Blood Urea Nitrogen 9 Creatinine 0.89 Est Glomerular Filtrat Rate mL/min > 60 Glucose Level 157 Calcium Level 9.2 Phosphorus Level 4.0 Magnesium Level 1.9 Medications Medication Current Medications Dextrose/Sodium Chloride 1,000 ml @ 100 mls/hr Q10H IV Last administered on 09/15/18at 13:04; Admin Dose 100 MLS/HR; Start 09/13/18 at 09:45 IV Flush (NS 3 ml) 3 ml PER PROTOCOL IV ; Start 09/13/18 at 10:00 Ondansetron HCl (Zofran Inj) 4 mg Q6H PRN IV NAUSEA/VOMITING Last administered on 09/14/18at 07:05; Admin Dose 4 MG; Start 09/13/18 at 10:00 Acetaminophen (Tylenol Tab) 650 mg Q6H PRN PO .PAIN 1-3 OR TEMP; Start 09/13/18 at 10:00 Acetaminophen/ Hydrocodone Bitart ([place] (5/325)) 1 tab Q6H PRN PO .PAIN 4-6; Start 09/13/18 at 10:00 Morphine Sulfate (morphine) 2 mg Q4H PRN IV .PAIN 7-10; Start 09/13/18 at 10:00 Pantoprazole (Protonix Tab) 40 mg DAILY@06 PO ; Start 09/13/18 at 10:00 Piperacillin Sod/ Tazobactam Sod 100 ml @ 200 mls/hr Q6 IVPB Last administered on 09/15/18at 12:30; Admin Dose 200 MLS/HR; Start 09/13/18 at 16:00 Lidocaine (Lidoderm) 1 patch DAILY PRN TD chest wall/rib pain; Start 09/14/18 at 14:00 Hydromorphone HCl (Dilaudid) 0.2 mg PACU PRN IV MILD PAIN 1-3; Start 09/15/18 at 17:00; Status UNV Hydromorphone HCl (Dilaudid) 0.4 mg PACU PRN IV MOD PAIN 4-6; Start 09/15/18 at 17:00; Status UNV Hydromorphone HCl (Dilaudid) 0.6 mg PACU PRN IV SEVERE PAIN 7-10; Start 09/15/18 at 17:00; Status UNV Fentanyl (Sublimaze) 25 mcg PACU ORDER PRN IV MILD PAIN 1-3; Start 09/15/18 at 17:00; Status UNV Fentanyl (Sublimaze) 50 mcg PACU ORDER PRN IV MOD PAIN 4-6; Start 09/15/18 at 17:00; Status UNV Fentanyl (Sublimaze) 75 mcg PACU ORDER PRN IV SEVERE PAIN 7-10; Start 09/15/18 at 17:00; Status UNV Oxycodone/ Acetaminophen (Percocet (5/ 325)) 1 tab PACU ORDER PRN PO .PAIN 1-5; Start 09/15/18 at 17:00; Status UNV Ondansetron HCl (Zofran Inj) 4 mg PACU ORDER PRN IV NAUSEA/VOMITING; Start 09/15/18 at 17:00; Status UNV Metoclopramide HCl (Reglan) 10 mg PACU ORDER PRN IV NAUSEA/VOMITING; Start 09/15/18 at 17:00; Status UNV Labetalol HCl (Labetalol) 5 mg PACU ORDER PRN IV HIGH BLOOD PRESSURE; Start 09/15/18 at 17:00; Status UNV Hydralazine HCl (Apresoline) 5 mg PACU ORDER PRN IV HIGH BLOOD PRESSURE; Start 09/15/18 at 17:00; Status UNV Ephedrine Sulfate 5 mg PACU ORDER PRN IV BLOOD PRESSURE SUPPORT; Start 09/15/18 at 17:00; Status UNV Meperidine HCl (Demerol) 25 mg PACU ORDER PRN IV .RIGORS; Start 09/15/18 at 17:00; Status UNV Diphenhydramine HCl (Benadryl) 25 mg PACU ORDER PRN IV .PRURITUS; Start 09/15/18 at 17:00; Status UNV SUNIL ROSALES MD Sep 15, 2018 17:01
[2018-09-15] MEDS ORDERED: PHENYLephrine (100 MCG/ML) 10ML SYG ONE (17:18)
[2018-09-15] MEDS ORDERED: METOCLOPRAMIDE 10 MG INJ ONE (17:28)
[2018-09-15] MEDS ORDERED: ONDANSETRON 4 MG INJ ONE (17:28)
[2018-09-15] MEDS ORDERED: KETOROLAC 30 MG INJ ONE (17:28)
[2018-09-15] MEDS ORDERED: DEXAMETHASONE 4 MG/ML 5 ML INJ ONE (17:28)
[2018-09-15] MEDS ORDERED: NEOSTIGMINE 3 MG/3 ML SYRINGE ONE (17:50)
[2018-09-15] MEDS ORDERED: GLYCOPYRROLATE 0.4 MG INJ ONE (17:50)
--- NOTE | 2018-09-15 18:20 | PAC ---
Date/Time of Note Date/Time of Note DATE: 09/15/18 TIME: 18:20 Post-Anesthesia Notes Post-Anesthesia Note Last documented vital signs Vital Signs Date Temp Pulse Resp B/P (MAP) Pulse Ox O2 O2 Flow FiO2 Time Delivery Rate 09/15/18 98.4 63 18 125/60 98 Room Air 18:26 (81) 09/14/18 10.0 11:54 Activity: WNL Respiratory function: WNL Cardiovascular function: WNL Mental status: Baseline Pain reasonably controlled: Yes Hydration appropriate: Yes Nausea/Vomiting absent: Yes VNEUS JEAN MD Sep 15, 2018 18:20
[2018-09-15] MEDS: FENTAnyl 50 MCG/ML VIAL IV PRN ×2 (18:22→18:29)
--- NOTE | 2018-09-15 18:28 | OPR ---
Date/Time of Note Date/Time of Note DATE: 09/15/18 TIME: 18:23 Operative Report Free Text/Dictation Laparoscopic cholecystectomy Procedure Date: Sep 15, 2018 Preoperative Diagnosis Choledocholithiasis, cholecystitis, cholelithiasis Postoperative Diagnosis Same Operation/Procedure Performed Laparoscopic cholecystectomy Surgeon Sunil Dinero MD see signature line Fitness Technician None Anesthesia Type: general Anesthesiologist: VENUS JEAN MD Estimated Blood Loss: 0 - 10 ml's Transfusion none Specimen Gallbladder and content Grafts/Implants none Tubes/Drains None Complications none Pt Condition Post Procedure: stable Disposition: PACU Indications Patient presented with abdominal pain workup on the admission including imaging labs and physical exam consistent with cholelithiasis and choledocholithiasis patient underwent ERCP to clear the common bile duct and now present for laparoscopic cholecystectomy which was recommended by both GI and surgery. Procedure Description Patient brought to the operating placed supine position general she is administered with intubation patient prepped draped in sterile fashion orogastric tube inserted by anesthesia a tap block was performed by anesthesia. Timeout was completed. The Veress needle was used left upper quadrant Infante's point insufflation delivered to maintain pneumoperitoneum at 15 mmHg throughout the procedure. Small stab incision made just below the umbilicus and a low millimeters trocar was inserted direct position with 30 degrees femoral laparoscope the Veress needle was removed and epigastric 5 Delgado trocar and 2 right-sided 5 Delgado trochars were inserted next the gallbladder was identified was markedly thickened consistent with cholecystitis. The gallbladder was decompressed placing a hook section irrigation device and then the gallbladder grasped by the fundus and lifted over the edge of the right lobe of the liver and secured in place with a Guzman's arm. Adhesions on the body neck of the gallbladder were taken down with hook cautery and blunt dissection. Suction irrigation was used to dissect by the neck of the gallbladder the cystic duct and cystic artery were each clearly identified with this technique and 2 clips were placed on the patient's side one on the gallbladder side and then divided the gallbladder was elevated and the attachments to the liver were divided with hook cautery until the gallbladder was free. The specimen bag was inserted through the umbilical port and the gallbladder was inserted and was brought out through that wound. Final inspection showed good hemostasis the pneumoperitoneum was allowed to escape after insufflation halted all trochars were removed. The fascia incision was closed with 0 Ethibond suture and the skin incision closed with 4-0 Monocryl and Dermabond for skin. Patient was explained the operative. Signed SUNIL Reina MD Sep 15, 2018 18:28
[2018-09-15] MEDS ORDERED: ACETAMINOPHEN 325 MG TAB PO PRN (18:30)
[2018-09-15] MEDS ORDERED: HYDROmorphONE 0.5 MG/0.5 ML SYG IV PRN (18:30)
[2018-09-15] MEDS: D5W-0.45 NACL + KCL 20 MEQ 1,000 ML IV SCH (20:55)
[2018-09-16 00:26] VITALS: BP 112/65; PULSE 55; RESP 18
[2018-09-16] MEDS: PIPER-TAZO 3.375 GM IV (PMX) 100 ML IVPB SCH ×4 (02:23→17:57)
[2018-09-16] MEDS: PANTOPRAZOLE (EC) 40 MG TAB PO SCH (06:56)
[2018-09-16] MEDS: D5W-0.45 NACL + KCL 20 MEQ 1,000 ML IV SCH ×2 (06:57→14:17)
[2018-09-16] MEDS ORDERED: ENOXAPARIN 40 MG/0.4 ML SYG SC SCH (07:00)
[2018-09-16 07:13] VITALS: BP 115/63; PULSE 52; RESP 18
--- NOTE | 2018-09-16 09:08 | PN ---
Date/Time of Note Date/Time of Note DATE: 09/16/18 TIME: 09:08 Assessment/Plan VTE Prophylaxis Risk score (from Nsg)>0 risk: 2 SCD applied (from Nsg): Yes Pharmacological prophylaxis: NA/contraindicated Pharm contraindication: low risk/ambulating Lines/Catheters IV Catheter Type (from Nrsg): Peripheral IV Urinary Cath still in place: No Assessment/Plan Assessment/Plan 1. Acute choledocholithiasis s/p ERCP - GI on board and appreciate consultation. Will need to continue on PPI for 4 weeks given findings of gastritis during ERCP. Discussed with patient - Choledocholithiasis and cholecystitis seen on HIDA and MRCP - Surgery on board and s/p lap kelsea. Tolerated surgery well. Given information for post op course - pain control 2. Acute cholecystitis s/p lap kelsea 3. Fibromyalgia - Chronic, monitor 4. Chronic headaches - discussed limiting Excedrin given findings of gastritis 5. History of TMJ - Chronic, monitor 6. Disposition - Once patient tolerating PO diet, will d/c home Result Diagram: 09/16/18 0430 09/16/18 0430 Results 24hrs Laboratory Tests Test 09/16/18 04:30 White Blood Count 6.8 Red Blood Count 3.40 L Hemoglobin 10.2 L Hematocrit 29.7 L Mean Corpuscular Volume 87.4 Mean Corpuscular Hemoglobin 30.0 Mean Corpuscular Hemoglobin Concent 34.3 Red Cell Distribution Width 11.9 Platelet Count 220 Mean Platelet Volume 10.0 Immature Granulocytes % 0.400 Neutrophils % 83.5 H Lymphocytes % 9.3 L Monocytes % 6.5 Eosinophils % 0.0 Basophils % 0.3 Nucleated Red Blood Cells % 0.0 Immature Granulocytes # 0.030 Neutrophils # 5.7 Lymphocytes # 0.6 L Monocytes # 0.4 Eosinophils # 0.0 Basophils # 0.0 Nucleated Red Blood Cells # 0.0 Sodium Level 141 Potassium Level 4.1 Chloride Level 107 Carbon Dioxide Level 25 Anion Gap 9 Blood Urea Nitrogen 4 L Creatinine 0.76 Est Glomerular Filtrat Rate mL/min > 60 Glucose Level 168 Calcium Level 8.8 Magnesium Level 1.7 Total Bilirubin 0.6 Direct Bilirubin 0.00 Indirect Bilirubin 0.6 Aspartate Amino Transf (AST/SGOT) 61 H Alanine Aminotransferase (ALT/SGPT) 84 H Alkaline Phosphatase 126 H Total Protein 6.2 Albumin 3.3 Globulin 2.90 Albumin/Globulin Ratio 1.13 Subjective 24 Hr Interval Summary Free Text/Dictation Patient complaining of bloating and discomfort with movement but denies any fevers or chills. No acute overnight events. Exam/Review of Systems Exam Vitals Vital Signs Date Temp Pulse Resp B/P (MAP) Pulse Ox O2 O2 Flow FiO2 Time Delivery Rate 09/16/18 97.9 52 18 115/63 98 07:13 (80) 09/15/18 Room Air 23:33 09/14/18 10.0 11:54 Intake and Output 09/15/18 09/15/18 09/16/18 1515:00 23:00 07:00 IntakeIntake Total 100 ml 2100 ml 1100 ml OutputOutput Total 720 ml BalanceBalance 100 ml 1380 ml 1100 ml Exam General: Patient is laying in bed and answers questions appropriately Neck: Supple Respiratory: Clear to auscultation bilaterally. no wheezing or rhonchi Cardiovascular: regular rate and rhythm, no obvious murmurs Gastrointestinal: soft, mildly tender at incision sites, bowel sounds heard. Neurological: Moves all extremities spontaneously Skin: incision sites clean and dry Results Results 24hrs Laboratory Tests Test 09/16/18 04:30 White Blood Count 6.8 Red Blood Count 3.40 L Hemoglobin 10.2 L Hematocrit 29.7 L Mean Corpuscular Volume 87.4 Mean Corpuscular Hemoglobin 30.0 Mean Corpuscular Hemoglobin Concent 34.3 Red Cell Distribution Width 11.9 Platelet Count 220 Mean Platelet Volume 10.0 Immature Granulocytes % 0.400 Neutrophils % 83.5 H Lymphocytes % 9.3 L Monocytes % 6.5 Eosinophils % 0.0 Basophils % 0.3 Nucleated Red Blood Cells % 0.0 Immature Granulocytes # 0.030 Neutrophils # 5.7 Lymphocytes # 0.6 L Monocytes # 0.4 Eosinophils # 0.0 Basophils # 0.0 Nucleated Red Blood Cells # 0.0 Sodium Level 141 Potassium Level 4.1 Chloride Level 107 Carbon Dioxide Level 25 Anion Gap 9 Blood Urea Nitrogen 4 L Creatinine 0.76 Est Glomerular Filtrat Rate mL/min > 60 Glucose Level 168 Calcium Level 8.8 Magnesium Level 1.7 Total Bilirubin 0.6 Direct Bilirubin 0.00 Indirect Bilirubin 0.6 Aspartate Amino Transf (AST/SGOT) 61 H Alanine Aminotransferase (ALT/SGPT) 84 H Alkaline Phosphatase 126 H Total Protein 6.2 Albumin 3.3 Globulin 2.90 Albumin/Globulin Ratio 1.13 Medications Medication Current Medications IV Flush (NS 3 ml) 3 ml PER PROTOCOL IV ; Start 09/13/18 at 10:00 Acetaminophen/ Hydrocodone Bitart ([place] (5/325)) 1 tab Q6H PRN PO .PAIN 4-6; Start 09/13/18 at 10:00 Morphine Sulfate (morphine) 2 mg Q4H PRN IV .PAIN 7-10; Start 09/13/18 at 10:00 Pantoprazole (Protonix Tab) 40 mg DAILY@06 PO Last administered on 09/16/18at 06 :56; Admin Dose 40 MG; Start 09/13/18 at 10:00 Lidocaine (Lidoderm) 1 patch DAILY PRN TD chest wall/rib pain; Start 09/14/18 at 14:00 Ondansetron HCl (Zofran Inj) 4 mg Q6H PRN IV NAUSEA AND/OR VOMITING; Start 09/15/18 at 18:30 Hydromorphone HCl (Dilaudid) 0.5 mg Q4H PRN IV BREAKTHROUGH PAIN; Start 09/15/18 at 18:30 Acetaminophen (Tylenol Tab) 650 mg Q6H PRN PO MILD PAIN(1-3)OR ELEVATED TEMP; Start 09/15/18 at 18:30 Potassium Chloride/Dextrose/ Sod Cl 1,000 ml @ 100 mls/hr Q10H IV Last admi nistered on 09/16/18at 06:57; Admin Dose 100 MLS/HR; Start 09/15/18 at 18:17 Enoxaparin Sodium (Lovenox) 40 mg DAILY@07 SC Last administered on 09/16/18at 06:58; Admin Dose 40 MG; Start 09/16/18 at 07:00 Piperacillin Sod/ Tazobactam Sod 100 ml @ 200 mls/hr Q6 IVPB Last administered on 09/16/18at 02:23; Admin Dose 200 MLS/HR; Start 09/16/18 at 03:00 RICK FREY MD Sep 16, 2018 09:08
--- NOTE | 2018-09-16 12:11 | PN ---
Date/Time of Note Date/Time of Note DATE: 09/16/18 TIME: 11:57 Assessment/Plan VTE Prophylaxis Risk score (from Ns)>0 risk: 4 SCD applied (from Ns): Yes Pharmacological prophylaxis: other (scds) Lines/Catheters IV [facility] Type (from [facility]): Peripheral IV Urinary Cath still in place: No Assessment/Plan Hospital Course Assessment: Right upper quadrant abdominal pain/abnormal liver function test. Rule out acute cholecystitis Rule out choledocholithiasis Rule out peptic ulcer disease Rule out underlying liver disease ERCP 09/14/18 Impression: Common bile duct sludge removed Post sphincterotomy Periampullary diverticulum Moderate gastritis. Rule out H. pylori infection. Biopsies obtained Cholelithiasis Laparoscopic cholecystectomy 09/15/18 Fibromyalgia TMJ Migraine headaches Plan: Avoid NSAIDs Continue present regimen. Continue PPI therapy x4 weeks D/c planning per hospitalist Patient seen in collaboration with Dr. Alarcon/Clarice Subjective: Course reviewed with nursing staff Patient interviewed and examined All labs, imaging and other results reviewed The patient resting in bed, pt c/o surgical pain and bloating encourage ambulation. Pt will request medical records and f/u with PCP for EGD pathology results PHYSICAL EXAMINATION: GENERAL: Well developed, well nourished, alert & oriented x 3, in no acute distress SKIN: surgical incisions HEAD: Normocephalic, atraumatic, no tenderness. EYES: Pupils equal reactive to light, no discharge. EARS/NOSE AND THROAT: Ears normal, nose normal, oropharynx normal, oral m embranes well hydrated without lesions. NECK: Supple, no masses CHEST: Inspection within normal limits. CARDIOVASCULAR: Heart: Regular rate and rhythm RESPIRATORY: Lungs clear to auscultation GASTROINTESTINAL AND LIVER: Abdomen: Soft, mild right upper quadrant tenderness, no Corrigan sign, non-distended, no hernias, no masses, no organomegaly, no ascites, no guarding, no rebound tenderness, normoactive bowel sounds. Rectal: Deferred. Result Diagram: 09/16/1842909/16/18 043 Results 24hrs Laboratory Tests Test 09/16/18 04:30 White Blood Count 6.8 Red Blood Count 3.40 L Hemoglobin 10.2 L Hematocrit 29.7 L Mean Corpuscular Volume 87.4 Mean Corpuscular Hemoglobin 30.0 Mean Corpuscular Hemoglobin Concent 34.3 Red Cell Distribution Width 11.9 Platelet Count 220 Mean Platelet Volume 10.0 Immature Granulocytes % 0.400 Neutrophils % 83.5 H Lymphocytes % 9.3 L Monocytes % 6.5 Eosinophils % 0.0 Basophils % 0.3 Nucleated Red Blood Cells % 0.0 Immature Granulocytes # 0.030 Neutrophils # 5.7 Lymphocytes # 0.6 L Monocytes # 0.4 Eosinophils # 0.0 Basophils # 0.0 Nucleated Red Blood Cells # 0.0 Sodium Level 141 Potassium Level 4.1 Chloride Level 107 Carbon Dioxide Level 25 Anion Gap 9 Blood Urea Nitrogen 4 L Creatinine 0.76 Est Glomerular Filtrat Rate mL/min > 60 Glucose Level 168 Calcium Level 8.8 Magnesium Level 1.7 Total Bilirubin 0.6 Direct Bilirubin 0.00 Indirect Bilirubin 0.6 Aspartate Amino Transf (AST/SGOT) 61 H Alanine Aminotransferase (ALT/SGPT) 84 H Alkaline Phosphatase 126 H Total Protein 6.2 Albumin 3.3 Globulin 2.90 Albumin/Globulin Ratio 1.13 Exam/Review of Systems Exam Vitals Vital Signs Date Temp Pulse Resp B/P (MAP) Pulse Ox O2 O2 Flow FiO2 Time Delivery Rate 09/16/18 97.9 52 18 115/63 98 07:13 (80) 09/15/18 Room Air 23:33 09/14/18 10.0 11:54 Intake and Output 09/15/18 09/15/18 09/16/18 1414:59 22:59 06:59 IntakeIntake Total 200 ml 2100 ml 1100 ml OutputOutput Total 720 ml BalanceBalance 200 ml 1380 ml 1100 ml Results Results 24hrs Laboratory Tests Test 09/16/18 04:30 White Blood Count 6.8 Red Blood Count 3.40 L Hemoglobin 10.2 L Hematocrit 29.7 L Mean Corpuscular Volume 87.4 Mean Corpuscular Hemoglobin 30.0 Mean Corpuscular Hemoglobin Concent 34.3 Red Cell Distribution Width 11.9 Platelet Count 220 Mean Platelet Volume 10.0 Immature Granulocytes % 0.400 Neutrophils % 83.5 H Lymphocytes % 9.3 L Monocytes % 6.5 Eosinophils % 0.0 Basophils % 0.3 Nucleated Red Blood Cells % 0.0 Immature Granulocytes # 0.030 Neutrophils # 5.7 Lymphocytes # 0.6 L Monocytes # 0.4 Eosinophils # 0.0 Basophils # 0.0 Nucleated Red Blood Cells # 0.0 Sodium Level 141 Potassium Level 4.1 Chloride Level 107 Carbon Dioxide Level 25 Anion Gap 9 Blood Urea Nitrogen 4 L Creatinine 0.76 Est Glomerular Filtrat Rate mL/min > 60 Glucose Level 168 Calcium Level 8.8 Magnesium Level 1.7 Total Bilirubin 0.6 Direct Bilirubin 0.00 Indirect Bilirubin 0.6 Aspartate Amino Transf (AST/SGOT) 61 H Alanine Aminotransferase (ALT/SGPT) 84 H Alkaline Phosphatase 126 H Total Protein 6.2 Albumin 3.3 Globulin 2.90 Albumin/Globulin Ratio 1.13 Medications Medication Current Medications IV Flush (NS 3 ml) 3 ml PER PROTOCOL IV ; Start 09/13/18 at 10:00 Acetaminophen/ Hydrocodone Bitart ([place] (5/325)) 1 tab Q6H PRN PO .PAIN 4-6; Start 09/13/18 at 10:00 Morphine Sulfate (morphine) 2 mg Q4H PRN IV .PAIN 7-10; Start 09/13/18 at 10:00 Pantoprazole (Protonix Tab) 40 mg DAILY@06 PO Last administered on 09/16/18at 06:56; Admin Dose 40 MG; Start 09/13/18 at 10:00 Lidocaine (Lidoderm) 1 patch DAILY PRN TD chest wall/rib pain; Start 09/14/18 at 14:00 Ondansetron HCl (Zofran Inj) 4 mg Q6H PRN IV NAUSEA AND/OR VOMITING; Start 09/15/18 at 18:30 Hydromorphone HCl (Dilaudid) 0.5 mg Q4H PRN IV BREAKTHROUGH PAIN; Start 09/15/18 at 18:30 Acetaminophen (Tylenol Tab) 650 mg Q6H PRN PO MILD PAIN(1-3)OR ELEVATED TEMP; Start 09/15/18 at 18:30 Potassium Chloride/Dextrose/ Sod Cl 1,000 ml @ 100 mls/hr Q10H IV Last administered on 09/16/18at 06:57; Admin Dose 100 MLS/HR; Start 09/15/18 at 18:17 Enoxaparin Sodium (Lovenox) 40 mg DAILY@07 SC Last administered on 09/16/18at 0 6:58; Admin Dose 40 MG; Start 09/16/18 at 07:00 Piperacillin Sod/ Tazobactam Sod 100 ml @ 200 mls/hr Q6 IVPB Last administered on 09/16/18at 09:41; Admin Dose 200 MLS/HR; Start 09/16/18 at 03:00 SHAYY HENDRICKSON Sep 16, 2018 12:11
[2018-09-16] MEDS ORDERED: TRAM50TA2 PO (12:30)
[2018-09-16] MEDS ORDERED: PANT40TA4 PO (12:30)
--- NOTE | 2018-09-16 12:39 | PDOCDIS ---
Discharge Instructions DIAGNOSIS Discharge Diagnosis 1. Acute choledocholithiasis s/p ERCP 2. Acute cholecystitis s/p laparoscopic cholecystectomy 3. Chronic headaches 4. History of TMJ 5. Gastritis CONDITION [id number] Patient Condition: [id number] Stable HOME CARE INSTRUCTIONS: [id number] Diet Instructions: [id number] Low Fat /Cholesterol FOLLOW UP/APPOINTMENTS Follow-up Plan 1. Follow up with your primary care physician in 1 week 2. Continue on Protonix for 4 weeks per GI recommendations. After you complete the 4 weeks and if you are going to eat foods that cause lots of acid production, take a Zantac/Pepcid prior to the meal 3. Follow recommendations given to you by hourly manager 4. Do not lift more than 20 lbs for the next 6 weeks while you are healing. Do not submerge yourself in bath, jacuzzi, or swimming pool for at least another week. If you have any issues, feel free to call Dr. Dinero office 5. If you are feeling constipation, increase fiber intake and hydration 6. If experiencing any concerning symptoms, please go to your nearest emergency department REFERRALS Other Referrals Husam Dinero MD Specialty: General Surgery Office Address [address] [place] [address] Office RICK FREY MD Sep 16, 2018 12:39
[2018-09-16] MEDS ORDERED: DOCU-144 PO (12:40)
[2018-09-16 14:11] VITALS: BP 146/67; PULSE 64; RESP 18
[2018-09-16 16:15] VITALS: BP 153/75; PULSE 75; RESP 18
[2018-09-16 16:23] VITALS: BP 138/63
--- NOTE | 2018-09-17 07:39 | DS ---
Date/Time of Note Date/Time of Note DATE: 09/17/18 TIME: 07:30 Discharge Summary Admission/Discharge Info Admit Date/Time Sep 13, 2018 at 07:49 Discharge Date/Time Sep 16, 2018 at 19:54 Discharge Diagnosis 1. Acute choledocholithiasis s/p ERCP 2. Acute cholecystitis s/p laparoscopic cholecystectomy 3. Chronic headaches 4. History of TMJ 5. Gastritis Patient Condition: Stable [place]- [facility] Dr. Dinero Procedures Free Text/Dictation Laparoscopic cholecystectomy Procedure Date: Sep 15, 2018 Preoperative Diagnosis Choledocholithiasis, cholecystitis, cholelithiasis Postoperative Diagnosis Same Operation/Procedure Performed Laparoscopic cholecystectomy Surgeon Husam Dinero MD see signature line Procedure Date 09/14/18 Indication: diagnostic, treatment Pre-procedure Diagnosis Choledocholithiasis by MRCP Post-procedure Diagnosis Impression: Common bile duct sludge removed Post sphincterotomy Periampullary diverticulum Moderate gastritis. Rule out H. pylori infection. Biopsies obtained Hx of Present Illness Patient is a female with a past medical history significant for fibromyalgia and intermittent abdominal pain who was told from her clinic to urgently come to the emergency room. Patient had been complaining of intermittent right upper quadrant and abdominal pain usually when she eats for the past couple of weeks or months. Currently patient has no abdominal pain but there has been abnormal liver function tests found on outpatient lab work. Patient denies chest pain, shortness of breath, leg pain, abdominal pain for now. Hospital Course Patient was admitted to med/surg for GI evaluation. HIDA and MRCP were performed with findings of acute choledocholithiasis. GI was consulted and ERCP was performed. General surgery was consulted and laparoscopic cholecystectomy was performed without any complications. Patient did well during postoperative course. All questions were addressed and patient was seen by egg crater for nu trition counseling. Patient tolerated PO diet and pain was controlled with PO Tramadol. Patient was discharged home in good condition. Home Meds Active Scripts Docusate Sodium* (Colace*) 100 Mg Capsule, 100 MG PO BID PRN for CONSTIPATION, #60 CAP Prov:RICK FREY MD 09/16/18 Tramadol HCl (Tramadol HCl) 50 Mg Tablet, 50 MG PO Q6H PRN for PAIN LEVEL 1-5, #15 TAB Prov:RICK FREY MD 09/16/18 Pantoprazole* (Pantoprazole*) 40 Mg Tablet.dr, 40 MG PO DAILY@06 for 30 Days, #30 TAB Prov:RICK FREY MD 09/16/18 Follow-up Plan 1. Follow up with your primary care physician in 1 week 2. Continue on Protonix for 4 weeks per GI recommendations. After you complete the 4 weeks and if you are going to eat foods that cause lots of acid production, take a Zantac/Pepcid prior to the meal 3. Follow recommendations given to you by egg crater 4. Do not lift more than 20 lbs for the next 6 weeks while you are healing. Do not submerge yourself in bath, jacuzzi, or swimming pool for at least another week. If you have any issues, feel free to call Dr. Dinero office 5. If you are feeling constipation, increase fiber intake and hydration 6. If experiencing any concerning symptoms, please go to your nearest emergency department Primary Care Provider Care Physician No Primary Time spent on discharge: > 30 minutes RICK FREY MD Sep 17, 2018 07:39
== END 2018-09-16 19:54 | disposition home or self-care (01) | DRG 419 ==
LOC: E/R 05:43 → MS1 07:49
PROVIDERS: ADMIT Internal Medicine; ATTEND Internal Medicine
PROC: 0FC98ZZ Extirpation of Matter from Common Bile Duct, Via Natural or Artificial Opening Endoscopic (ICD-10-PCS; 2018-09-14)
PROC: 0DB64ZX Excision of Stomach, Percutaneous Endoscopic Approach, Diagnostic (ICD-10-PCS; 2018-09-14)
PROC: 0FT44ZZ Resection of Gallbladder, Percutaneous Endoscopic Approach (ICD-10-PCS; principal; 2018-09-15 13:00)
DX: K80.62 Calculus of gallbladder and bile duct with acute cholecystitis without obstruction (principal); K29.70 Gastritis, unspecified, without bleeding; K57.10 Diverticulosis of small intestine without perforation or abscess without bleeding; M79.7 Fibromyalgia; R51 Headache
CPT/HCPCS: 36415; 74181; 74330; 76705; 78226; 80048; 80053; 80061; 81001; 82728; 83036; 83540; 83690; 83735; 84100; 84443; 84484; 85025; 85610; 86038; 86255; 86704; 86709; 86803; 87340; 88304; 88305; 88312; 93005; 96374; 96375; A9537; J0690; J1100; J1170; J1650; J1885; J2175; J2250; J2370; J2405; J2543; J2710; J2765; J2795; J3010; J3480; J7042; Q9967